=== PATIENT | female | born 1995 | race African-American/Black ===

== ENCOUNTER 2017-09-21 15:26 | Emergency (ER) | payer MEDICAID ==
[~2017-09-21] VITALS: Ht 162.6 cm; Wt 77.0 kg
[2017-09-21 15:46] VITALS: BP 137/84
== END 2017-09-21 18:19 | disposition left against medical advice (07) ==
LOC: ER 15:26
DX: L02.212 Cutaneous abscess of back [any part, except buttock and flank] (principal)
CPT/HCPCS: 99281